=== PATIENT | female | born 1960 | race Caucasian/White ===

== ENCOUNTER → 2019-03-28 12:48 | Outpatient (CLI) | payer OTHER, SELFPAY ==
--- NOTE | 2019-03-28 | DI.RAD.S_ITS ---
PROCEDURE: XR KUB INDICATIONS: KIDNEY STONES TECHNIQUE: One view of the abdomen acquired. COMPARISON: None. FINDINGS: Surgical changes and devices: Cholecystectomy clips. Bowel: Bowel gas pattern is normal. Soft tissues: No suspicious abdominal calcifications. Calcifications are noted within the pelvis suggestive of phleboliths. Visualized solid organ contours appear normal in size. Bones: No suspicious bony lesions. IMPRESSION: No definitive renal or ureteral calcifications. Dictated by: Mala Ortiz M.D. on 03/28/2019 at 16:02 Approved by: Mala Ortiz M.D. on 03/28/2019 at 16:03
== END ==
PROVIDERS: PCP Internal Medicine; Visit Provider Student in an Organized Health Care Education/Training Program
DX: N20.0 Calculus of kidney (principal)
CPT/HCPCS: 74018

== ENCOUNTER → 2019-05-28 14:01 | Outpatient (CLI) | payer OTHER, SELFPAY ==
--- NOTE | 2019-05-28 14:04 | DI.RAD.S_ITS ---
PROCEDURE: XR LUMBAR SPINE MIN 4V INDICATIONS: s/p cervical fusion TECHNIQUE: 5 views of the lumbar spine were acquired. COMPARISON: None. FINDINGS: Bones: No fracture or focal osseous destruction. Multilevel degenerative endplate sclerosis and spurring. Diffuse facet arthropathy. Trace anterolisthesis of L4 on L5. Diffuse mild to moderate narrowing of the lumbar disc spaces Soft tissues: Overlying bowel gas pattern is normal. No suspicious soft tissue calcifications. Oblique images: No pars defects. IMPRESSION: [id number] diffuse lumbar spondylosis. Trace anterolisthesis of L4 and L5. Dictated by: Terrell Oshea M.D. on 05/28/2019 at 16:59 Approved by: Terrell Oshea M.D. on 05/28/2019 at 17:01
--- NOTE | 2019-05-28 14:04 | DI.MRI.S_ITS ---
PROCEDURE: MR CERVICAL SPINE WO CON INDICATIONS: s/p cervical fusion TECHNIQUE: Noncontrast sagittal T1 spin echo and T2 fast spin echo, sagittal STIR, foraminal oblique sagittal T2 fast spin echo, and axial gradient echo or T2 fast spin echo through the cervical spine. COMPARISON: [facility], CR, XR CERVICAL SPINE 4V OR 5V, 05/28/2019, 14:40. FINDINGS: Image quality: Excellent. Alignment and Curvature: Straightening of the normal lordotic curvature. Trace anterolisthesis of C2 on C3. Postsurgical changes related to ACDF at C4-C5 and C6-C7. There is also interbody cage graft at C5-C6 with anterior retaining pins. Bone Marrow: No acute fracture. Multilevel degenerative endplate sclerosis and spurring. Diffuse facet arthropathy. Spinal Cord: Visualized spinal cord has normal size and signal. Low lying cerebellar tonsils incidentally noted. Paraspinous Soft Tissues: No paravertebral masses. Prevertebral soft tissues are normal in thickness. C2-C3: No canal stenosis. No left foraminal narrowing. Mild right foraminal stenosis. C3-C4: Mild canal narrowing with partial effacement of the anterior and posterior thecal sac. Mild right foraminal narrowing. Mild to moderate left foraminal stenosis with minimal nerve root compression C4-C5: No definite canal stenosis. Mild left foraminal narrowing. No right foraminal stenosis C5-C6: Mild canal narrowing which is mildly asymmetric, left greater than right. No right foraminal stenosis. Severe left foraminal narrowing with nerve root compression C6-C7: No high-grade canal stenosis. No right foraminal narrowing. Mild left foraminal narrowing C7-T1: No canal stenosis. No definite foraminal stenosis IMPRESSION: Cervical spondylosis and facet arthropathy with severe left C5-C6 foraminal narrowing. Incidentally noted low lying cerebellar tonsils. Dictated by: Terrell Oshea M.D. on 05/28/2019 at 15:26 Approved by: Terrell Oshea M.D. on 05/28/2019 at 15:36
--- NOTE | 2019-05-28 14:04 | DI.RAD.S_ITS ---
PROCEDURE: XR SHOULDER LT MIN 2V INDICATIONS: s/p cervical fusion TECHNIQUE: 3 views of the shoulder were acquired. COMPARISON: None. FINDINGS: Bones: Possible Hill-Sachs fracture deformity although this could be confirmed with cross-sectional imaging. Partially visualized cervical spine fixation hardware. Chronic left shoulder joint degeneration Soft tissues: No suspicious soft tissue calcifications. IMPRESSION: Possible Hill-Sachs fracture, age-indeterminate, however this could be confirmed with cross-sectional imaging as clinically warranted. Left shoulder joint degeneration Dictated by: Terrell Oshea M.D. on 05/28/2019 at 17:22 Approved by: Terrell Oshea M.D. on 05/28/2019 at 17:25
--- NOTE | 2019-05-28 14:04 | DI.RAD.S_ITS ---
PROCEDURE: XR CERVICAL SPINE 4V OR 5V INDICATIONS: s/p cervical fusion TECHNIQUE: 5 views of the cervical spine acquired. COMPARISON: None. FINDINGS: Bones: No fractures or dislocations to the C7 level. Oblique images demonstrate no bony foraminal stenoses. ACDF at C4-C5, and C6-C7. C5-C6 interbody cage graft with anterior retaining pins. Remaining cervical disc spaces demonstrate mild narrowing. Straightening of the normal lordotic curvature. Multilevel degenerative endplate sclerosis and spurring. Diffuse facet arthropathy. On the left, there is moderate C4-C5 and C5-C6 bony foraminal narrowing. On the right, there is diffuse mild-moderate bony foraminal stenoses, and severe bony foraminal narrowing at C5-C6. Soft tissues: No prevertebral soft tissue swelling. IMPRESSION: Postsurgical and degenerative changes as above. Dictated by: Terrell Oshea M.D. on 05/28/2019 at 17:25 Approved by: Terrell Oshea M.D. on 05/28/2019 at 17:28
== END ==
PROVIDERS: PCP Internal Medicine; Visit Provider Physical Medicine & Rehabilitation
DX: M47.812 Spondylosis without myelopathy or radiculopathy, cervical region (principal); M48.02 Spinal stenosis, cervical region; M47.816 Spondylosis without myelopathy or radiculopathy, lumbar region; M19.012 Primary osteoarthritis, left shoulder; Q76.1 Klippel-Feil syndrome; G90.50 Complex regional pain syndrome I, unspecified; Z98.1 Arthrodesis status; Z96.619 Presence of unspecified artificial shoulder joint
CPT/HCPCS: 72050; 72110; 72141; 73030

== ENCOUNTER 2019-07-16 08:49 | Outpatient (CLI) | payer OTHER, SELFPAY ==
[2019-07-16] VITALS (9 sets, daily range): BP systolic 106–126; BP diastolic 57–98; PULSE 86–106; RESP 16–20; O2SAT 97–100
--- NOTE | 2019-07-16 08:52 | DI.RAD.S_ITS ---
PROCEDURE: PAIN C/T INTERLAMINAR INJECT INDICATIONS: SPONDYLOSIS FINDINGS: Fluoroscopic spot filming was performed to verify placement of spinal needles at the C6-C7 level(s), as labeled on the films. Appropriate location(s) of the needle tip(s) was confirmed by injection of iodinated contrast. IMPRESSION: Fluoroscopy for pain management. Dictated by: Felix Moulton M.D. on 07/16/2019 at 10:31 Approved by: Felix Moulton M.D. on 07/16/2019 at 10:32
[2019-07-16] MEDS: MIDAZOLAM 5 MG/5 ML VIAL IV (09:59)
[2019-07-16] MEDS: fentaNYL 100 MCG/2 ML INJ 50 MCG IV (09:59)
[2019-07-16] MEDS: IOPAMIDOL 15 ML VIAL 3 ML INJ (10:08)
[2019-07-16] MEDS: LIDOCAINE 1% 20 ML 5 ML INJ (10:08)
[2019-07-16] MEDS: DEXAMETHASONE 10 MG/ML VIAL 30 MG INJ (10:08)
--- NOTE | 2019-07-16 10:14 | PC.NURSE ---
ASSISTING PT OFF TABLE AND TRANSPORTING TO POST PROC AREA IN STABLE CONDITION. RN CARE PASSING TO GABINO Snyder RN.
--- NOTE | 2019-07-16 12:02 | PC.NURSE ---
Discharge note: Patient arrived for post procedure monitoring at 1021. Awake but drowsy. VSS, O2 Sat WNL. Lips numb from sedation patient states. Resolved before discharge to home. No unusual numbness or tingling to upper extremities. Pain level 0/10. tolerating PO without any nausea. Discharge instructions given and explained with good understand by patient and family. Stable for discharge to home. W/C to car at 1045
--- NOTE | 2019-07-16 15:34 | P.PCN_ITS ---
Procedures Date/Time Date of procedure: 07/16/19 Time of procedure: 15:34 General Procedure description: PREOP DIAGNOSIS 1. CERVICAL STENOSIS, 2. CERVICAL HNP WITH UPPER EXTREMITY RADICULAR FEATURES, POST OP DIAGNOSIS 1. CERVICAL STENOSIS, 2. CERVICAL HNP WITH UPPER EXTREMITY RADICULAR FEATURES, PROCEDURES 1. FLUORSCOPICALLY GUIDED CONTRAST CONTROLLED INTERLAMINAR EPIDURAL STEROID INJECTION - C6/7 TL BRYSON PHYSICIAN: Crispin Juarez DO INDICATIONS Janice is referred by DUONG Rehman for treatment of Cervical HNP with Upper Extremity Paresthesias. FINDINGS Cervical Stenosis due to disc deterioration and nerve root irritation and nerve root irritation DESCRIPTION OF PROCEDURE Fluoroscopically guided, contrast-controlled C6/7 translaminar epidural steroid injection with conscious sedation. Following review of allergy and review of potential side effects and complications, including, but not necessarily limited to, infection, allergic reaction, local tissue breakdown, temporary as well as permanent nerve injury, stroke, paralysis, and possible , the patient indicated that patient understood and agreed to proceed. An informed consent document was signed by the patient, witnessed by a nurse, and placed in the patient's chart. Additionally, other treatment options including modalities, medications, and physical therapy were reviewed with the patient. After review of previous anaesthesic history and IV conscious sedation the patient was deemed safe to proceed with todays procedure with IV conscious sedation as ASA class II designation. Safety time-out was performed to confirm patient ID, procedure to be performed and site of procedure. IV sedation was accomplished with a combination of 2mg of Versed and 50mcg of Fentanyl administered by the RN after DO order, titrated to patient comfort during the course of the procedure while the patient remained responsive to all verbal commands. In the prone position, following sterile prep and drape of the cervical region, the C6/7 translaminar space was identified fluoroscopically. The skin was anesthetized via a 25-gauge 1.5-inch needle with 1% lidocaine solution. At this point, a 25-gauge, 2.5-inch short bevel spinal needle was atraumatically introduced and advanced under fluoroscopic guidance into epidural space at the C6/7 translaminar space. Depth was confirmed on lateral view. Radiological data, including multiple fluoroscopic views of the cervical spine, reveal a spinal needle at the C6/7 translaminar space. Lateral views then show placement of the needle in the epidural space. Subsequent views show contrast material flowing superiorly and inferiorly in the epidural space. DSA fluoroscopy with live contrast injection, once again, confirmed no vascular or intrathecal uptake. At this point, using loss of resistance technique with saline and air, the epidural space was entered. Following negative aspiration, injection of approximately 1.5 cc of Isovue-200 with live fluoroscopy in the AP view confirmed epidural flow in the epidural space without vascular or intrathecal uptake observed. Subsequently, a test dose of 1 cc of 1% lidocaine solution was injected and patient was observed for two minutes without signs or symptoms of complications, including abdominal pain, shortness of breath, bilateral upper or lower extremity weakness, nausea and vomiting, prior to steroid injection. At this point, 2cc or 20mg of dexamethasone was then injected without incident. The patient tolerated the procedure well without signs or symptoms of complications prior to being transferred to the recovery area for further m onitoring, The patient was then transferred to the recovery area where they were observed for an appropriate period of time after the injection. The patient reported a VAS score of 6 prior to the procedure and a post-procedure VAS of 0. Total Fluoroscopy Time: 37.0 seconds Total Conscious Time: 24min POST OP INSTRUCTIONS The patient was provided a Pain Log to continue to record their response to the target-specific procedure prior to follow-up visit with the referring provider. Additionally, specific post-injection care instructions and a contact number to our office were provided if concerns arise regarding possible complications associated with the procedure are suspected. Crispin Juarez DO Complications: none
== END 2019-07-16 10:45 ==
LOC: RAD 08:51
PROVIDERS: PCP Internal Medicine; Visit Provider Physical Medicine & Rehabilitation
DX: M48.02 Spinal stenosis, cervical region (principal); M50.123 Cervical disc disorder at C6-C7 level with radiculopathy
CPT/HCPCS: 62321; 99152; J1100; J2250; J3010

== ENCOUNTER → 2019-10-08 15:53 | Outpatient (ROUT) | payer OTHER, SELFPAY ==
[2019-10-08 15:59] LABS: INR 0.9 (0.9-1.3); Prothrombin Time 10.8 SECONDS (10.1-12.7)
== END ==
PROVIDERS: PCP Internal Medicine; Visit Provider Student in an Organized Health Care Education/Training Program
DX: R10.32 Left lower quadrant pain (principal); R19.5 Other fecal abnormalities
CPT/HCPCS: 85610

== ENCOUNTER → 2019-10-15 10:32 | Outpatient (CLI) | payer OTHER, SELFPAY ==
--- NOTE | 2019-10-15 11:34 | DI.CT.S_ITS ---
PROCEDURE: CT CERVICAL SPINE WO CON INDICATIONS: Arthrodesis status TECHNIQUE: Noncontrast 3 mm thick sections acquired from the skull base to the T4 level. Sagittal and coronal reformats were then constructed. For radiation dose reduction, the following was used: automated exposure control, adjustment of mA and/or kV according to patient size. COMPARISON: [facility], MR, MR CERVICAL SPINE WO CON, 05/28/2019, 14:23. [facility], CR, XR CERVICAL SPINE 4V OR 5V, 05/28/2019, 14:40. FINDINGS: Image quality: Excellent. Bones: No fractures or dislocations. Visualized superior ribs are intact. Numerous postoperative changes are seen, with anterior fixation hardware at the C4-C5 level and the C6-C7 level. The screws appear well placed. The fusion plates are well seated. Disc spacers are seen at C4-C5 and C6-C7. There is an anteriorly placed fusion device seen at the C5-C6 level, which appears well seated. No findings of hardware failure or hardware loosening are seen. Degenerative changes are seen throughout, including [id number] disc space narrowing at C3-C4. Bridging anterior osteophytes are seen at C7-T1. Soft tissues: Prevertebral soft tissues are normal in thickness. No paravertebral hematomas. No apical pneumothoraces. IMPRESSION: Unremarkable postoperative hardware. Dictated by: Jose Vasquez M.D. on 10/15/2019 at 12:24 Approved by: Jose Vasquez M.D. on 10/15/2019 at 12:27
== END ==
PROVIDERS: PCP Internal Medicine; Visit Provider Orthopaedic Surgery
DX: M54.2 Cervicalgia (principal); Z98.1 Arthrodesis status
CPT/HCPCS: 72125

== ENCOUNTER 2019-10-22 09:47 | Outpatient (CLI) | payer OTHER, SELFPAY ==
[2019-10-22] VITALS (13 sets, daily range): BP systolic 108–141; BP diastolic 61–95; PULSE 69–97; RESP 15–16; TEMP 36.1; O2SAT 94–100
--- NOTE | 2019-10-22 09:48 | DI.RAD.S_ITS ---
PROCEDURE: PAIN C/T INTERLAMINAR INJECT INDICATIONS: RADICULOPATHY FINDINGS: Fluoroscopic spot filming was performed to verify placement of spinal needle at the C6-C7 level(s), as labeled on the films. Appropriate location(s) of the needle tip(s) was confirmed by injection of iodinated contrast. IMPRESSION: Posterior midline C6-C7 needle tip localization for translaminar epidural steroid injection at the low cervical spine. Dictated by: Asad Humphrey M.D. on 10/22/2019 at 11:57 Approved by: Asad Humphrey M.D. on 10/22/2019 at 11:59
[2019-10-22] MEDS: MIDAZOLAM 5 MG/5 ML VIAL IV (11:18)
[2019-10-22] MEDS: fentaNYL 100 MCG/2 ML INJ 50 MCG IV (11:26)
[2019-10-22] MEDS: BUPIVACAINE 0.25% (PF) VIAL 2 ML INJ (11:28)
[2019-10-22] MEDS: IOPAMIDOL 15 ML VIAL 3 ML INJ (11:29)
[2019-10-22] MEDS: DEXAMETHASONE 10 MG/ML VIAL 20 MG INJ (11:29)
--- NOTE | 2019-10-22 11:34 | PC.NURSE ---
ASSISTING PT OFF TABLE AND TRANSPORTING TO POST PROC AREA IN STABLE CONDITION. PASSING RN CARE OF PT OFF TO AROLDO Huang RN.
--- NOTE | 2019-10-22 11:40 | PM.PROC.1 ---
Procedures Date/Time Date of procedure: 10/22/19 Time of procedure: 11:40 General Procedure description: PREOP DIAGNOSIS 1. CERVICAL STENOSIS, 2. CERVICAL HNP WITH UPPER EXTREMITY RADICULAR FEATURES, POST OP DIAGNOSIS 1. CERVICAL STENOSIS, 2. CERVICAL HNP WITH UPPER EXTREMITY RADICULAR FEATURES, PROCEDURES 1. FLUORSCOPICALLY GUIDED CONTRAST CONTROLLED INTERLAMINAR EPIDURAL STEROID INJECTION - C6/7 TL BRYSON PHYSICIAN: DO LUDMILA Stone Janice is referred by DUONG Rehman for treatment of Cervical HNP with Upper Extremity Paresthesias s/p fusion. FINDINGS Cervical Stenosis due to disc deterioration and nerve root irritation and nerve root irritation DESCRIPTION OF PROCEDURE Fluoroscopically guided, contrast-controlled C6/7 translaminar epidural steroid injection with conscious sedation. Following review of allergy and review of potential side effects and complications, including, but not necessarily limited to, infection, allergic reaction, local tissue breakdown, temporary as well as permanent nerve injury, stroke, paralysis, and possible , the patient indicated that patient understood and agreed to proceed. An informed consent document was signed by the patient, witnessed by a nurse, and placed in the patient's chart. Additionally, other treatment options including modalities, medications, and physical therapy were reviewed with the patient. After review of previous anaesthesic history and IV conscious sedation the patient was deemed safe to proceed with todays procedure with IV conscious sedation as ASA class II designation. Safety time-out was performed to confirm patient ID, procedure to be performed and site of procedure. IV sedation was accomplished with a combination of 2mg of Versed and 50mcg of Fentanyl administered by the RN after DO order, titrated to patient comfort during the course of the procedure while the patient remained responsive to all verbal commands. In the prone position, following sterile prep and drape of the cervical region, the C6/7 translaminar space was identified fluoroscopically. The skin was anesthetized via a 25-gauge 1.5-inch needle with 1% lidocaine solution. At this point, a 25-gauge, 2.5-inch short bevel spinal needle was atraumatically introduced and advanced under fluoroscopic guidance into epidural space at the C6/7 translaminar space. Depth was confirmed on lateral view. Radiological data, including multiple fluoroscopic views of the cervical spine, reveal a spinal needle at the C6/7 translaminar space. Lateral views then show placement of the needle in the epidural space. Subsequent views show contrast material flowing superiorly and inferiorly in the epidural space. DSA fluoroscopy with live contrast injection, once again, confirmed no vascular or intrathecal uptake. At this point, using loss of resistance technique with saline and air, the epidural space was entered. Following negative aspiration, injection of approximately 1.5 cc of Isovue-200 with live fluoroscopy in the AP view confirmed epidural flow in the epidural space without vascular or intrathecal uptake observed. Subsequently, a test dose of 1 cc of 0.25 Marcaine solution was injected and patient was observed for two minutes without signs or symptoms of complications, including abdominal pain, shortness of breath, bilateral upper or lower extremity weakness, nausea and vomiting, prior to steroid injection. At this point, 2cc or 20mg of dexamethasone was then injected without incident. The patient tolerated the procedure well without signs or symptoms of complications prior to being transferred to the recovery area for further monitoring, The patient was then transferred to the recovery area where they were observed for an appropriate period of time after the injection. The patient reported a VAS score of 6 prior to the procedure and a post-procedure VAS of 0. Total Fluoroscopy Time: 23 seconds Total Conscious Time: 24 min POST OP INSTRUCTIONS The patient was provided a Pain Log to continue to record their response to the target-specific procedure prior to follow-up visit with the referring provider. Additionally, specific post-injection care instructions and a contact number to our office were provided if concerns arise regarding possible complications associated with the procedure are suspected. Crispin Juarez DO Complications: none
--- NOTE | 2019-10-22 13:35 | PC.NURSE ---
pt returned via [facility] post procedure at 1146. She is alert and able to transfer from [facility] to chair without assistance. Monitoring resumed from MAGEN Shay
== END 2019-10-22 12:19 | disposition home or self-care (01) ==
LOC: RAD 09:48
PROVIDERS: PCP Internal Medicine; Referring Provider Physical Medicine & Rehabilitation; Visit Provider Physical Medicine & Rehabilitation
DX: M48.02 Spinal stenosis, cervical region (principal); M50.123 Cervical disc disorder at C6-C7 level with radiculopathy; R20.2 Paresthesia of skin; Z98.1 Arthrodesis status
CPT/HCPCS: 62321; 99152; J1100; J2250; J3010

== ENCOUNTER → 2019-10-29 13:39 | Outpatient (CLI) | payer OTHER, SELFPAY ==
--- NOTE | 2019-10-29 | DI.US.S_ITS ---
PROCEDURE: US ABDOMEN COMPLETE INDICATIONS: UNSPECIFIED ABDOMINAL PAIN TECHNIQUE: Real-time scanning was performed of the abdominal and retroperitoneal organs, with image documentation. COMPARISON: None. FINDINGS: Liver: The liver demonstrates diffusely increased echotexture without focal abnormalities consistent with chronic hepatocellular disease/hepatic steatosis. Gallbladder: Surgically absent Biliary ducts: Intrahepatic bile ducts are non-dilated. Extrahepatic bile duct caliber measures 10 mm. Normal is 6-7 mm or less in diameter, or 10 mm or less post-cholecystectomy. Pancreas: Visualized portions of the pancreas appear unremarkable. Spleen: Spleen is normal in size and homogeneous in echotexture. Kidneys: Kidneys are normal in size and echotexture. Right kidney measures 10.5 cm long; left kidney measures 10.8 cm long. No hydronephrosis or nephrolithiasis. No solid masses. There is mild cortical thinning on the right kidney with the cortex measuring 0.9 cm in thickness. Aorta: Visualized aorta is normal in caliber at less than 3 cm. Scattered atherosclerotic plaque. Iliacs: Proximal common iliac arteries are normal in caliber at less than 2.5 cm. IVC: Intrahepatic inferior vena cava is patent. Miscellaneous: No free abdominal fluid. IMPRESSION: 1. The liver demonstrates diffusely increased echotexture without focal abnormalities consistent with chronic hepatocellular disease/hepatic steatosis. Consider correlation with LFTs. 2. Status post cholecystectomy. Common bile duct measures up to 10 mm in diameter, likely related to post cholecystectomy physiologic dilatation. 3. Atherosclerotic vascular disease without aneurysmal dilatation of the abdominal aorta. Dictated by: River Rouse M.D. on 10/29/2019 at 15:52 Approved by: River Rouse M.D. on 10/29/2019 at 15:57
== END ==
PROVIDERS: PCP Internal Medicine; Referring Provider Student in an Organized Health Care Education/Training Program; Visit Provider Student in an Organized Health Care Education/Training Program
DX: R10.9 Unspecified abdominal pain (principal); I70.0 Atherosclerosis of aorta; Z90.49 Acquired absence of other specified parts of digestive tract
CPT/HCPCS: 76700

== ENCOUNTER → 2019-11-27 16:35 | Outpatient (CLI) | payer OTHER, SELFPAY ==
[2019-11-27 17:45] LABS: Add Manual Diff / Slide Review NO; Basophils Absolute Auto 100 /uL (0-100); Basophils Percent Auto 0.9 % (0-2); Eosinophils Absolute Auto 100 /uL (0-450); Eosinophils Percent Auto 0.8 % (2-4); Hematocrit 42.9 % (36-46); Hemoglobin 15.1 g/dL (12.0-16.0); Lymphocytes Absolute Auto 2900 /uL (1100-4500); Lymphocytes Percent Auto 31.9 % (25-40); Mean Corpuscular HGB Conc 35.2 % (30-36); Mean Corpuscular Hemoglobin 30.5 PG (26-34); Mean Corpuscular Volume 86.8 fL (80-100); Monocytes Absolute Auto 700 /uL (0-900); Monocytes Percent Auto 7.6 % (3-14); Neutrophils Absolute Auto 5400 /uL (1500-7000); Neutrophils Percent Auto 58.8 % (50-75); Platelet Count 301 X10^3/uL (150-400); Red Blood Cell Count 4.94 X10^6/uL (4.0-5.2); Red Cell Distribution Width 15.3 % (11.6-14.8); White Blood Cell Count 9.2 X10^3/uL (4.5-11.0)
[2019-11-27 17:54] LABS: BUN Creatinine Ratio 24.3 (6-22); Blood Urea Nitrogen 18 mg/dL (7-17); Calcium 10.5 mg/dL (8.4-10.2); Carbon Dioxide 28 mmol/L (22-32); Chloride 101 mmol/L (98-107); Estimated Glomerular Filt Rate > 60.0 mL/min (>60); Glucose 97 mg/dL (70-100); HEMOLYSIS < 15 (0-50); Phosphorous 3.8 mg/dL (2.5-4.5); Potassium 3.9 mmol/L (3.4-5.1); Sodium 138 mmol/L (137-145); Uric Acid 6.3 mg/dL (2.5-6.2)
== END ==
PROVIDERS: PCP Internal Medicine; Referring Provider Orthopaedic Surgery; Visit Provider Orthopaedic Surgery
DX: Z01.812 Encounter for preprocedural laboratory examination (principal); Z01.818 Encounter for other preprocedural examination; R79.89 Other specified abnormal findings of blood chemistry; N20.0 Calculus of kidney
CPT/HCPCS: 36415; 80048; 84100; 84550; 85025; 93005; 93010

== ENCOUNTER → 2020-08-31 12:57 | Outpatient (CLI) | payer OTHER, SELFPAY ==
--- NOTE | 2020-08-31 13:03 | DI.RAD.S_ITS ---
PROCEDURE: XR HIP W PEL IF DONE LT MIN 4V INDICATIONS: left hip pain TECHNIQUE: AP pelvis with lateral view(s) of the both hip(s). COMPARISON: None. FINDINGS: Bones: No fractures or dislocations. Pelvic ring appears intact. No suspicious bony lesions. Mild degenerative joint disease in hips bilaterally. Severe facet arthropathy at L5-S1. Soft tissues: The visualized bowel gas pattern is normal. No suspicious soft tissue calcifications. IMPRESSION: No fracture or dislocation. Mild degenerative joint disease in hips bilaterally. Dictated by: Felix Moulton M.D. on 08/31/2020 at 13:46 Approved by: Felix Moulton M.D. on 08/31/2020 at 14:33
== END ==
PROVIDERS: Referring Provider Physical Medicine & Rehabilitation; Visit Provider Physical Medicine & Rehabilitation
DX: M25.552 Pain in left hip (principal); M16.0 Bilateral primary osteoarthritis of hip; M47.817 Spondylosis without myelopathy or radiculopathy, lumbosacral region; M54.12 Radiculopathy, cervical region; Q76.1 Klippel-Feil syndrome; G90.511 Complex regional pain syndrome I of right upper limb; Z96.619 Presence of unspecified artificial shoulder joint
CPT/HCPCS: 20611; 73522; 99213

== ENCOUNTER → 2024-03-19 16:06 | Outpatient (CLI) | payer OTHER, SELFPAY ==
[2024-03-19 17:18] LABS: Hemoglobin A1C% w Est Avg Glu 5.2 % (4.0-6.0)
[2024-03-20 15:04] LABS: Vitamin D 25 Hydroxy (D3) 67.4 ng/mL (30.0-100.0)
== END ==
LOC: LAB 16:10
DX: R73.09 Other abnormal glucose (principal); E55.9 Vitamin D deficiency, unspecified
CPT/HCPCS: 36415; 82306; 83036